=== PATIENT | female | born 1970 | race Caucasian/White ===

== ENCOUNTER 2021-12-08 09:35 | Emergency (ER) | payer OTHER, SELFPAY ==
--- NOTE | ~2021-12-08 | CT_ITS ---
EXAMINATION: CT ABDOMEN AND PELVIS WITHOUT CONTRAST CLINICAL INFORMATION: Flank pain with dysuria COMPARISON: None TECHNIQUE: Multidetector volumetric imaging was performed from the superior aspect of the liver through the pubic symphysis. Sagittal and coronal reformatted images were obtained on the technologist's workstation. This CT examination was performed using dose optimization techniques as appropriate, variously including the following: *Automated exposure control *Adjustment of mA and/or kV according to patient size (this includes techniques or standardized protocols for targeted exams where dose is matched to indication/reason for exam; i.e. extremities or head) *Use of iterative reconstruction technique DLP: 711 mGy-cm FINDINGS: LUNG BASES: The visualized lung bases are unremarkable. LIVER, GALLBLADDER, AND BILIARY TREE: The liver is normal in size, shape, and attenuation. No focal hepatic lesion or biliary ductal dilatation is present. Gallstones within the gallbladder PANCREAS: Unremarkable. SPLEEN: Unremarkable. ADRENAL GLANDS: Unremarkable. KIDNEYS AND URETERS: The kidneys are normal in size, shape, and attenuation. No hydronephrosis, hydroureter, or calculi seen. No perinephric stranding. BLADDER: Limited visualization due to artifact from the patient's hip replacement. GASTROINTESTINAL TRACT: Significant thickening in the sigmoid with soft tissue stranding. Large diverticular in the region. Consistent with diverticulitis. Otherwise the bowel pattern is nonobstructing. ABDOMINAL WALL: No significant hernia is appreciated. LYMPH NODES: Normal. VASCULAR: Mild atherosclerotic changes. PELVIC VISCERA: Limited visualization due to artifact OSSEOUS STRUCTURES: Unremarkable. CT/CT abdomen pelvis wo con IMPRESSION: In the deep pelvis distal sigmoid shows a thick wall with soft tissue stranding around a prominent diverticula consistent with diverticulitis. No drainable collection is seen. The bowel pattern is nonobstructing Fleischner guidelines were followed.
[2021-12-08 09:55] VITALS: BP 137/70; PULSE 90; RESP 16; TEMP 36.2; O2SAT 97; BMI 35.8
--- NOTE | 2021-12-08 11:12 | ED_ITS ---
HPI - Female Genitourinary General Chief complaint: Urogenital-Female Stated complaint: low back pain and abd pain Time Seen by Provider: 12/08/21 10:52 Source: patient and RN notes reviewed Limitations: no limitations History of Present Illness HPI Narrative: This is a 51-year-old female, with a past medical history of arthritis and d iabetes, who presents today with complaint left-sided flank pain and left-sided suprapubic pain x1 week. Patient reported that she initially had left-sided flank pain 1 week ago. She denies any recent trauma or injury to her back. She states that over this past week, the pain has increased in intensity in pain and now moved into her left lower abdomen. She states that about 6 months ago she had similar left sided back pain, had an ultrasound and was told she likely had a kidney stone that she passed. She states that she also has had multiple episodes of diarrhea, reports last night she had 4-5 episodes of diarrhea. She reports that the diarrhea was dark in color, denies bright red blood per rectum. She states that she often times gets diarrhea reports that metformin does not agree with are going to take this daily. She denies any fevers or chills, or vomiting. She states that she took a dose of tramadol this morning for her arthritis pain, and reports that this gave her some moderate relief by overdose. She was seen in [facility] this morning and was told that she had blood in her urine into comes to the emergency department for further evaluation. She denies any other complaints or concerns at this time. MD elicited complaint: dysuria and flank pain Onset (ago): week(s) Location of symptoms: suprapubic, LLQ, low back and flank Severity: moderate Female Urogenital Radiation: Suprapubic and LLQ Severity scale (1-10): 8 Quality of pain: cramping Consistency: constant and progressively worsening Vaginal discharge: none Vaginal bleeding: none Urinary symptoms: Dysuria, Urgency, Frequency and Flank Pain Exacerbating factors: urination Relieving factors: urination Associated symptoms: abdominal pain, nausea and back pain Treatment prior to arrival: other Sexual activity: No Patient : No Possible : postmenopausal Related Data Previous Rx's Medication Instructions Recorded ibuprofen 600 mg tablet 600 mg PO Q8H PRN pain #14 tabs 12/08/21 levofloxacin 750 mg tablet 750 mg PO DAILY #7 tabs 12/08/21 ondansetron 4 mg disintegrating 4 mg PO DAILY PRN nausea and 12/08/21 tablet vomiting #7 tabs Allergies Allergy/AdvReac Type Severity Reaction Status Date / Time wool Allergy Intermediate RASH Unverified 02/10/20 14:54 codeine [CODEINE] AdvReac Unknown GI PAIN Unverified 02/10/20 14:54 SHELLFISH Allergy Intermediate ITCHING OF Uncoded 12/08/21 09:55 THROAT Review of Systems Review of Systems: Constitutional: No Fever, No Chills ENT/Mouth: No sore throat, No Rhinorrhea, No Swallowing Difficulty Eyes: No Eye Pain, No Swelling, No Redness Cardiovascular: No Chest Pain, No SOB, No Orthopnea, No Edema Respiratory: No Cough, No Sputum, No Wheezing, No dyspnea Gastrointestinal: + Diarrhea, + abdominal Pain, No Nausea, No Vomiting, No Hematochezia, No Melena Genitourinary: + Dysuria, No Urinary Frequency, No Hematuria Musculoskeletal: No joint pain, No Myalgias Skin: No Skin Lesions, No rash Neuro: No Weakness, No Numbness, No Dizziness, No Headache Psych: No Anxiety/Panic, No Depression Heme/Lymph: No Bruising, No Lymphadenopathy Endocrine: No Polyuria, No Polydipsia PMFSH Social History Social History Alcohol intake: never Patient Tobacco Use Status: Current everyday Tobacco user Use of substances other than those prescribed or required for medical reasons: No Advance Directives: No Advance Directives Information Provided: Yes Patient : No Physical Exam Vital Signs: Vital Signs: Last Vital Signs Temp 97.2 F 12/08/21 09:55 Pulse 78 12/08/21 14:00 Resp 16 12/08/21 09:55 BP 93/62 12/08/21 14:00 Pulse Ox 96 12/08/21 14:00 O2 Del Method 12/08/21 14:00 BMI result Body Mass Index 35.8 Appearance: Alert. Oriented X3. No acute distress. Eyes: Pupils equal, round and reactive to light. ENT: Pharynx normal. Neck: Normal inspection. Neck supple. CVS: Normal heart rate and rhythm. Pulses normal. Respiratory: No respiratory distress. Breath sounds normal. Abdomen: Abdomen is soft, nondistended. Active bowel sounds present. Tenderness palpation in her left upper and left lower abdomen, with diffuse suprapubic tenderness. Skin: Skin warm and dry. Normal skin color. Normal skin turgor. No rashes. Extremities: No lower extremity edema. Neuro: Oriented X 3. No motor deficit. No sensory deficit. Course Course Course Narrative: This is a 51-year-old female, with a past medical history of arthritis and diabetes, who presents today with complaint left-sided flank pain and left-sided suprapubic pain x1 week. Reevaluation(s) Reevaluation #1: Labs return, leukocytosis at 18.1 and urine returned with 2+ blood and 1+ leukocytes. CT abdomen and pelvis shows in the deep pelvis distal sigmoid shows a thick wall with soft tissue stranding around a prominent diverticula consistent with diverticulitis. No drainable collection is seen. Bowel pattern is nonobstructing. Kidneys and ureters are unremarkable. Blood cultures and lactic acid ordered. Will treat with Levaquin 750mg IV to treat for UTI and diverticulitis. Time: 12:37 Reevaluation #2: Patient re-evaluated. Discussed with patient admission vs discharge home, jose angel lee reports that she would prefer to go home if possible with outpatient follow up with her primary care physician. Reporting 5/10 abdominal pain, and feels as though the pain and nausea medication has worn off. Toradol 30mg IV and Zofran 4mg IV ordered. Time: 14:38 Reevaluation #3: Lactic acid is normal. Patient is feeling better and she would like to go home. She was tolerating p.o.. No vomiting. She has been given a dose of IV Levaquin to treat both of her UTI in her mild diverticulitis. Will also prescribe p.o. Flagyl to treat the diverticulitis. Will refer to GI. She has tramadol at home. Will add NSAID for diverticulitis pain. She is stable for DC home, return precautions were discussed. Time: 17:09 MDM - Female Genitourinary Lab Data Result diagrams: 12/08/21 11:50 12/08/21 11:50 Labs: Lab Results 12/08/21 12/08/21 12/08/21 Range/Units 11:50 11:50 11:59 WBC 18.1 H (4.8-10.8) X10*3/uL RBC 5.70 H (4.20-5.50) X10*6/uL Hgb 15.5 (12.0-16.0) g/dl Hct 47.6 H (37.0-47.0) % MCV 83.5 (80.0-98.0) fL MCH 27.2 (27.0-33.0) pg MCHC 32.6 (31.0-35.0) g/dl RDW 15.0 (11.0-16.0) % Plt Count 324 (160-400) X10*3/uL MPV 9.8 (9.4-12.3) fL Immature Gran % (Auto) 0.4 (0.0-0.4) % Neut % (Auto) 82.3 H (45-73) % Lymph % (Auto) 11.3 L (20-40) % Dawson % (Auto) 5.2 (2-11) % Eos % (Auto) 0.4 (0-4) % Baso % (Auto) 0.4 (0-2) % Lymph # (Auto) 2.0 (1.2-4.9) X10*3/uL Dawson # (Auto) 1.0 (0.1-1.2) X10*3/uL Eos # (Auto) 0.1 (0.0-0.4) X10*3/uL Baso # (Auto) 0.1 (0.0-0.2) X10*3/uL Abs Immat Gran (auto) 0.08 H (0.00-0.03) X10*3/uL Absolute Neuts (auto) 14.9 H (2.0-8.3) x10*3/uL Absolute Nucleated RBC 0.000 (0.0-0.012) X10*3/uL Nucleated RBC % (auto) 0.0 (0.0-0.2) /100WBC Sodium 138 (135-145) mmol/L Potassium 4.1 (3.3-5.1) mmol/L Chloride 100 (96-108) mmol/L Carbon Dioxide 27 (22-29) mmol/L Anion Gap 15 (12-20) BUN 12 (9-16) mg/dL Creatinine 0.83 (0.5-1.4) mg/dL Estim Creat Clear Calc 81.2 Estimated GFR > 60 Random Glucose 197 H (60-115) mg/dL Lactic Acid (0.5-2.0) mmol/L Calcium 9.2 (8.4-10.2) mg/dL Magnesium 2.0 (1.6-2.6) mg/dL Total Bilirubin 0.5 (0.0-1.0) mg/dL Direct Bilirubin 0.2 (0.0-0.5) mg/dL AST 12 (5-31) U/L ALT 12 (0-31) U/L Alkaline Phosphatase 134 H (39-117) U/L Total Protein 7.0 (6.5-8.0) g/dL Albumin 4.1 (3.5-5.0) g/dL Urine Color YELLOW Urine Appearance HAZY Urine pH 5.5 (5.0-8.0) Ur Specific [place] 1.025 (1.005-1.025) Urine Protein NEG (NEG-TRACE) MG/DL Urine Glucose (UA) NEG (NEG) MG/DL Urine Ketones NEG (NEG) MG/DL Urine Blood 2+ H (NEG) Urine Nitrite NEG (NEG) Ur Leukocyte Esterase 1+ H (NEG) Urine RBC 1-4 (0) /HPF Urine WBC 10-14 H (0-4) /HPF Ur Squamous Epith Cells NONE /LPF Urine Bacteria TRACE /LPF 12/08/21 Range/Units 14:05 WBC (4.8-10.8) X10*3/uL RBC (4.20-5.50) X10*6/uL Hgb (12.0-16.0) g/dl Hct (37.0-47.0) % MCV (80.0-98.0) fL MCH (27.0-33.0) pg MCHC (31.0-35.0) g/dl RDW (11.0-16.0) % Plt Count (160-400) X10*3/uL MPV (9.4-12.3) fL Immature Gran % (Auto) (0.0-0.4) % Neut % (Auto) (45-73) % Lymph % (Auto) (20-40) % Dawson % (Auto) (2-11) % Eos % (Auto) (0-4) % Baso % (Auto) (0-2) % Lymph # (Auto) (1.2-4.9) X10*3/uL Dawson # (Auto) (0.1-1.2) X10*3/uL Eos # (Auto) (0.0-0.4) X10*3/uL Baso # (Auto) (0.0-0.2) X10*3/uL Abs Immat Gran (auto) (0.00-0.03) X10*3/uL Absolute Neuts (auto) (2.0-8.3) x10*3/uL Absolute Nucleated RBC (0.0-0.012) X10*3/uL Nucleated RBC % (auto) (0.0-0.2) /100WBC Sodium (135-145) mmol/L Potassium (3.3-5.1) mmol/L Chloride (96-108) mmol/L Carbon Dioxide (22-29) mmol/L Anion Gap (12-20) BUN (9-16) mg/dL Creatinine (0.5-1.4) mg/dL Estim Creat Clear Calc Estimated GFR Random Glucose (60-115) mg/dL Lactic Acid 1.2 (0.5-2.0) mmol/L Calcium (8.4-10.2) mg/dL Magnesium (1.6-2.6) mg/dL Total Bilirubin (0.0-1.0) mg/dL Direct Bilirubin (0.0-0.5) mg/dL AST (5-31) U/L ALT (0-31) U/L Alkaline Phosphatase (39-117) U/L Total Protein (6.5-8.0) g/dL Albumin (3.5-5.0) g/dL Urine Color Urine Appearance Urine pH (5.0-8.0) Ur Specific Milton (1.005-1.025) Urine Protein (NEG-TRACE) MG/DL Urine Glucose (UA) (NEG) MG/DL Urine Ketones (NEG) MG/DL Urine Blood (NEG) Urine Nitrite (NEG) Ur Leukocyte Esterase (NEG) Urine RBC (0) /HPF Urine WBC (0-4) /HPF Ur Squamous Epith Cells /LPF Urine Bacteria /LPF Critical Care Time Critical Care Time Critical Care Time: No Discharge Plan Discharge Clinical Impression: Urinary tract infection, Diverticulitis Patient Disposition: Home, Self-Care Instructions: Diverticulitis (ED), Urinary Tract Infection in Women (ED), Diverticulitis Diet (ED) Additional Instructions: Your urinalysis showed evidence of infection. Your CT scan showed a small area of diverticulitis on the left side of your abdomen. Treatment for both of these infections is antibiotics. Start taking the levofloxacin tomorrow, your given 1st dose today in the ER. Start taking the metronidazole today. Do not drink alcohol while taking this medication it can make you very ill. Take the prescribed anti-inflammatory as needed for pain. Take the prescribed nausea medication as needed for nausea and vomiting. Recommend sticking to a liquid diet for the next 24-48 hours. Recommend following up with GI. Name and number below If you develop new or worsening symptoms call 911 or come back to the ER for further evaluation. Prescriptions: New levofloxacin 750 mg tablet 750 mg PO DAILY Qty: 7 0RF ibuprofen 600 mg tablet 600 mg PO Q8H PRN (Reason: pain) Qty: 14 0RF ondansetron 4 mg tablet,disintegrating 4 mg PO DAILY PRN (Reason: nausea and vomiting) Qty: 7 0RF Referrals: Bertha Chairez MD [Physician] - (Diverticulitis)
[2021-12-08 11:55] LABS: MANUAL DIFF FLAG NO
[2021-12-08 11:56] LABS: Basophils Absolute Auto 0.1 X10*3/uL (0.0-0.2); Basophils Percent Auto 0.4 % (0-2); Eosinophils Absolute Auto 0.1 X10*3/uL (0.0-0.4); Eosinophils Percent Auto 0.4 % (0-4); Hematocrit 47.6 % (37.0-47.0); Hemoglobin 15.5 g/dl (12.0-16.0); Imm Gran Abs Auto 0.08 X10*3/uL (0.00-0.03); Imm Gran Pct Auto 0.4 % (0.0-0.4); Lymphocytes Percent Auto 11.3 % (20-40); Mean Corpuscular HGB Conc 32.6 g/dl (31.0-35.0); Mean Corpuscular Hemoglobin 27.2 pg (27.0-33.0); Mean Corpuscular Volume 83.5 fL (80.0-98.0); Mean Platelet Volume 9.8 fL (9.4-12.3); Monocytes Percent Auto 5.2 % (2-11); Neutrophils Absolute Auto 14.9 x10*3/uL (2.0-8.3); Neutrophils Percent Auto 82.3 % (45-73); Platelet Count 324 X10*3/uL (160-400); White Blood Count 18.1 X10*3/uL (4.8-10.8)
[2021-12-08] MEDS: Morphine Sulfate 4 MG/ML CARTRIDGE IVPUSH (11:56)
[2021-12-08] MEDS: ondansetron HCL 4 MG/2 ML VIAL IVPUSH ×2 (11:56→15:44)
[2021-12-08 12:08] LABS: Appearance Urine HAZY; Color Urine YELLOW; Glucose Urine UA NEG (NEG); Leukocyte Esterase Urine 1+ (NEG); Nitrite Urine NEG (NEG); PH 5.5 (5.0-8.0); Specific Gravity - Urine 1.025 (1.005-1.025); UACC Culture Trigger YES; Urine Blood 2+ (NEG); Urine Ketones NEG (NEG); Urine Protein NEG (NEG-TRACE)
[2021-12-08 12:21] LABS: Alanine Aminotransferase 12 U/L (0-31); Albumin Level 4.1 g/dL (3.5-5.0); Alkaline Phosphatase 134 U/L (39-117); Anion Gap 15 (12-20); Aspartate Amino Transferase 12 U/L (5-31); Bilirubin Direct 0.2 mg/dL (0.0-0.5); Bilirubin Total 0.5 mg/dL (0.0-1.0); Blood Urea Nitrogen 12 mg/dL (9-16); Calcium 9.2 mg/dL (8.4-10.2); Carbon Dioxide 27 mmol/L (22-29); Chloride 100 mmol/L (96-108); Creatinine Clr Calc Pharmacy 81.2; Estimated Glomerular Filt Rate > 60; Glucose Random 197 mg/dL (60-115); Potassium 4.1 mmol/L (3.3-5.1); Sodium 138 mmol/L (135-145)
[2021-12-08 12:36] LABS: Bacteria Urine TRACE /LPF
[2021-12-08 14:00] VITALS: BP 93/62; PULSE 78; O2SAT 96
[2021-12-08 14:21] LABS: Lactic Acid 1.2 mmol/L (0.5-2.0)
[2021-12-08] MEDS: 0.9 % Sodium Chloride 1,000 ML 999 ML IVCONT (15:44)
[2021-12-08] MEDS: levoFLOXacin 750 MG TABLET PO (15:44)
[2021-12-08] MEDS: Ketorolac Tromethamine 30 MG/ML VIAL IVPUSH (15:44)
--- NOTE | 2021-12-08 16:17 | PC.NURSE ---
pt c/o of L flank pain x 1wk. she reported that over 1 wk ago she was having LL abdominal pain. she also reported 4-5 episodes of diarrhea dark in color. no fever/chills. no headache, no dizziness.
== END 2021-12-08 17:38 | disposition home or self-care (01) ==
PROVIDERS: Physician Assistant; Emergency Provider Emergency Medicine; PCP Pediatrics
DX: N39.0 Urinary tract infection, site not specified (principal); B96.20 Unspecified Escherichia coli [E. coli] as the cause of diseases classified elsewhere; K57.32 Diverticulitis of large intestine without perforation or abscess without bleeding; R10.9 Unspecified abdominal pain; E11.9 Type 2 diabetes mellitus without complications; R19.7 Diarrhea, unspecified; F17.200 Nicotine dependence, unspecified, uncomplicated
CPT/HCPCS: 36415; 74176; 80048; 80076; 81001; 83605; 83735; 85025; 87040; 87086; 87088; 87186; 96361; 96374; 96375; 96376; 99284; J1885; J2270; J2405

== ENCOUNTER 2022-04-06 10:44 | Emergency (ER) | payer OTHER, SELFPAY ==
--- NOTE | ~2022-04-06 | XR_ITS ---
EXAMINATION: XR CHEST CLINICAL INFORMATION: Shortness of breath COMPARISON: None TECHNIQUE: PA view of the chest was obtained. FINDINGS: No significant abnormality is noted involving the heart, lungs, mediastinum, bony thorax or soft tissues. XR/XR chest 1V IMPRESSION: No acute disease.
[2022-04-06 10:47] VITALS: BP 118/70; PULSE 100; RESP 18; TEMP 37; O2SAT 95; BMI 34.2
[2022-04-06 11:21] LABS: Strep A Nucleic Acid Negative (Negative)
[2022-04-06 11:25] LABS: COVID-19 Test Negative (Negative); IDNOW Serial# 16C4AD1C
[2022-04-06 11:26] LABS: Influenza A Negative (Negative); Influenza B2 Negative (Negative)
--- NOTE | 2022-04-06 11:49 | ED_ITS ---
HPI - URI/Sore Throat General Chief Complaint: Upper Respiratory Symptoms Stated Complaint: fever sore throat cough Time Seen by Provider: 04/06/22 11:47 Source: patient Mode of arrival: ambulatory History of Present Illness HPI Narrative: 52-year-old female with past medical history of diabetes presenting to the ED complaining of persistent dry cough, mild SOB, fever T-max 100.7 degrees, sore throat, ear pressure x1 week. Admits tested negative for COVID-19 this week. Denies recent travel, difficulty/inability to swallow, chest pain. 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 MD elicited complaint: fever, cough, sore throat and nasal congestion Related Data Previous Rx's Medication Instructions Recorded ibuprofen 600 mg tablet 600 mg PO Q8H PRN pain #14 tabs 12/08/21 levofloxacin 750 mg tablet 750 mg PO DAILY #7 tabs 12/08/21 ondansetron 4 mg disintegrating 4 mg PO DAILY PRN nausea and 12/08/21 tablet vomiting #7 tabs amoxicillin 875 mg-potassium 1 tab PO BID 7 days #14 tabs 04/06/22 clavulanate 125 mg tablet benzonatate 100 mg capsule 100 mg PO TID PRN cough #14 caps 04/06/22 clotrimazole 10 mg gricel 10 mg mucous membrane 5XD 7 days 04/06/22 #35 tabs fluticasone propionate 50 2 spray intranasal DAILY #16 grams 04/06/22 mcg/actuation nasal spray,suspension (Flonase Allergy Relief) Allergies Allergy/AdvReac Type Severity Reaction Status Date / Time wool Allergy Intermediate RASH Unverified 02/10/20 14:54 codeine [CODEINE] AdvReac Unknown GI PAIN Unverified 02/10/20 14:54 SHELLFISH Allergy Intermediate ITCHING OF Uncoded 12/08/21 09:55 THROAT Review of Systems Review of Systems: Constitutional: + Fever, No Chills, No Night Sweats, No Fatigue, No Malaise ENT/Mouth: No Hearing loss, + Ear pressure, + Nasal Congestion, No Sinus Pain, No Hoarseness, + sore throat, No Rhinorrhea, No Swallowing Difficulty Eyes: No Eye Pain, No Swelling, No Redness Cardiovascular: No Chest Pain, + SOB, No Edema, No Palpitations Respiratory: + Cough, No Sputum, No Wheezing, No Smoke Exposure, No Dyspnea Gastrointestinal: No Nausea, No Vomiting, No Diarrhea, No Constipation, No Abdominal pain Genitourinary: No Dysuria, No Urinary Frequency, No Hematuria, No Flank Pain Musculoskeletal: No joint pain, No Myalgias, No Joint Swelling Skin: No Skin Lesions, No rash Neuro: No Weakness, No Headache Yes all other systems are reviewed and are negative Constitutional: Constitutional: Reports as per [facility] Past Medical History Attestation statement: The following information was validated with the patient. Social History Social History Alcohol intake: never Patient Tobacco Use Status: Current everyday Tobacco user Advance Directives: No Advance Directives Information Provided: Yes Physical Exam Vital Signs: Vital Signs: Last Vital Signs Temp 98.6 F 04/06/22 10:47 Pulse 100 04/06/22 10:47 Resp 18 04/06/22 10:47 BP 118/70 04/06/22 10:47 Pulse Ox 95 04/06/22 10:47 O2 Del Method 04/06/22 10:47 BMI result Body Mass Index 34.2 Const: General: cooperative, healthy appearing, no acute distress, alert and awake Orientation/consciousness: patient oriented x3 Limitations: no limitations HEENT: Head: Yes normal to inspection and Yes atraumatic Ears: hearing grossly normal bilaterally, external ears normal, TM's normal bilaterally and mastoids normal General nose exam: Normal external nose present Face and sinus: Yes normal facial exam Mouth: no muffled voice and tongue abnormal with white coating; not hairy Throat: Yes posterior oropharynx normal, Yes tonsils normal, Yes uvula midline, No uvula laterally displaced and No uvular edema Eyes: General: appearance normal, both eyes and all related structures EOM: EOMs intact bilaterally Neck: Other: +mild submandibular lymphadenapathy Neck: Yes normal visual inspection and Yes no meningeal signs Resp: Effort & Inspection: normal respiratory effort, no respiratory distress and no stridor Auscultation: clear to auscultation bilaterally, no crackles, no rales, no rhonchi and no wheezes Cardio: Rate: regular rate and tachycardic Heart sounds: S1 normal heart sound present and S2 normal heart sound present GI: Inspection: Yes normal to inspection Palpation (GI): Soft to palpation, nontender, no guarding and not rigid Skin: Rashes: no rashes Wounds: no wounds Neuro: General: patient oriented x3, tone normal and no meningeal signs Gait exam (Neuro): Normal gait present Extrem: General: Yes normal to inspection Course Course Course Narrative: -COVID-19 and influenza negative XR chest 1V IMPRESSION: No acute disease. ? -RSV test currently pending will call with results Results discussed with patient including worrisome signs and symptoms and strict return precautions, and when to return to the emergency department. They verbalized understanding and feel safe for discharge at this time. -[id number]--RSV negative Medications Administered Discontinued Medications Generic Name Dose Route Start Last Admin Trade Name Freq PRN Reason Stop Dose Admin Benzonatate 100 mg 04/06/22 12:02 04/06/22 12:14 Benzonatate 100 Mg Capsule PO 04/06/22 12:03 100 mg ONCE ONE Administration Clotrimazole 10 mg 04/06/22 12:02 04/06/22 12:15 Clotrimazole 10 Mg Gricel MUCOUS MEM 04/06/22 12:03 10 mg ONCE ONE Administration Lidocaine HCl 5 ml 04/06/22 12:02 04/06/22 12:14 Lidocaine Hcl Viscous 2 % 15 Ml Solution MUCOUS MEM 04/06/22 12:03 5 ml ONCE ONE Administration MDM - URI/Sore Throat MDM Narrative Medical decision making narrative: 52-year-old female with past medical history of diabetes presenting to the ED complaining of persistent dry cough, mild SOB, fever T-max 100.7 degrees, sore throat, ear pressure x1 week. On exam mildly tachycardic with heart rate of 100, NAD, nontoxic appearing, tongue coated with white, no tonsillar exudate/swelling, mild submandibular lymphadenopathy, lungs CTA, talking in complete sentences. Patient denies recent inhaled corticosteroids/prednisone or history of thrush. Concern for bronchitis vs pneumonia vs viral illness. Concern for ?Thrush vs oral lesions Plan: CXR, COVID/FLU/RSV, Tessaljulieta segundo, PO Clotrimazole gricel, Viscous lido Differential Diagnosis Differential diagnosis: Likely upper respiratory infection, viral infection, influenza and pharyngitis Medical Records Attestation: I reviewed the patient's medical records. Lab Data Attestation: I reviewed the patient's lab results. Labs: Lab Results 04/06/22 04/06/22 04/06/22 Range/Units 10:54 10:54 10:54 COVID-19 ([place]) Negative (Negative) COVID-19 Clin Com See Note Influenza Type A ([place]) Negative (Negative) Influenza Type A (PCR) (Negative) Influenza Type B ([place]) Negative (Negative) Influenza Type B (PCR) (Negative) Influenza A & B Note See Note RSV RNA Qual (PCR) (Negative) SARS-CoV-2 RNA (RT-PCR) (Negative) S. pyogenes GrpA [place] Negative (Negative) 04/06/22 Range/Units 12:18 COVID-19 ([place]) (Negative) COVID-19 Clin Com Influenza Type A ([place]) (Negative) Influenza Type A (PCR) NEGATIVE (Negative) Influenza Type B ([place]) (Negative) Influenza Type B (PCR) NEGATIVE (Negative) Influenza A & B Note RSV RNA Qual (PCR) NEGATIVE (Negative) SARS-CoV-2 RNA (RT-PCR) NEGATIVE (Negative) S. pyogenes GrpA [place] (Negative) Discharge Plan Discharge Clinical Impression: Bronchitis, Tongue abnormality Patient Disposition: Home, Self-Care Instructions: Acute Bronchitis (ED) Additional Instructions: You tested negative for COVID-19 and the flu. Her chest x-ray is unremarkable RSV is currently pending I will call you with positive results only later this afternoon Augmentin as antibiotic please take as prescribed. Clotrimazole gricel is will help with tongue infection Tessalon Perles or for cough. Flonase is a prescription nasal decongestant Please have close follow-up with her doctor and an ENT specialist. If symptoms persist or worsen, you have fever unresolved with medications, worsening cough/shortness of breath, you are unable to swallow return to the ED Prescriptions: New benzonatate 100 mg capsule 100 mg PO TID PRN (Reason: cough) Qty: 14 0RF fluticasone propionate [Flonase Allergy Relief] 50 mcg/actuation spray,suspension 2 spray intranasal DAILY Qty: 16 0RF Rx Instructions: administer into each nostril amoxicillin-pot clavulanate 875-125 mg tablet 1 tab PO BID 7 Days Qty: 14 0RF clotrimazole 10 mg gricel 10 mg mucous membrane 5XD 7 Days Qty: 35 0RF No Action levofloxacin 750 mg tablet 750 mg PO DAILY Qty: 7 0RF ibuprofen 600 mg tablet 600 mg PO Q8H PRN (Reason: pain) Qty: 14 0RF ondansetron 4 mg tablet,disintegrating 4 mg PO DAILY PRN (Reason: nausea and vomiting) Qty: 7 0RF Referrals: Anuel Wilkes [Physician] - Narciso Ruiz MD [Primary Care Provider] - 3 days Interventions: ED Discharge Assessment Last Done: 04/06/22 13:43 Discharge Date/Time: 04/06/22 13:43
[2022-04-06] MEDS: Benzonatate 100 MG CAPSULE PO (12:14)
[2022-04-06] MEDS: Lidocaine HCl Viscous 2 % 15 ML SOLUTION 5 ML MUCOUS MEM (12:14)
[2022-04-06 13:02] LABS: Influenza A PCR NEGATIVE (Negative); Influenza B PCR NEGATIVE (Negative); Resp Syncy Virus RNA Qual PCR NEGATIVE (Negative); SARS COV2 PCR INHOUSE NEGATIVE (Negative)
== END 2022-04-06 13:43 | disposition home or self-care (01) ==
PROVIDERS: Physician Assistant; Emergency Provider Emergency Medicine; PCP Pediatrics
DX: J40 Bronchitis, not specified as acute or chronic (principal); Q38.3 Other congenital malformations of tongue; Z20.822 Contact with and (suspected) exposure to COVID-19; R50.9 Fever, unspecified; J02.9 Acute pharyngitis, unspecified; R00.0 Tachycardia, unspecified; R06.02 Shortness of breath; E11.9 Type 2 diabetes mellitus without complications; F17.200 Nicotine dependence, unspecified, uncomplicated
CPT/HCPCS: 0241U; 36415; 71045; 87502; 87635; 87651; 99282; 99283